=== PATIENT | male | born 1960 | race Caucasian/White ===

== ENCOUNTER 2018-11-17 14:32 | Outpatient (CLI) | payer OTHER, SELFPAY ==
[2018-11-17 15:10] LABS: Mean Corp. HGB Concentration 33.3 g/dL (32.0-36.0); Mean Corpuscular Volume 93.1 fL (80-95); Mean Platelet Volume 8.6 fL (8.0-11.0); Platelet Count 544 x1000/uL (130-400); RBC 4.51 m/cumm (4.50-6.00); RBC Distribution Width 11.5 % (11.8-14.1); White Blood Cell Count 10.82 k/cumm (4.4-10.8)
[2018-11-17 15:34] LABS: ALT 36 U/L (16-63); AST 18 U/L (15-37); Albumin 3.9 g/dL (3.4-5.0); Alkaline Phosphatase 129 U/L (46-116); Amylase 27 U/L (25-115); Anion Gap 12.2 mmol/L (3-11); BUN 9 mg/dL (7-18); Bilirubin, Total 0.7 mg/dL (0.2-1.0); CO2 25.8 mmol/L (21.0-32.0); Calcium 9.5 mg/dL (8.5-10.1); Chloride 99 mmol/L (98-107); Glucose 97 mg/dL (70-100); Lipase 159 U/L (73-393); Potassium 4.2 mmol/L (3.5-5.1); Sodium 137 mmol/L (136-145); Total Protein 7.4 g/dL (6.4-8.2)
== END 2018-11-17 14:52 ==
PROVIDERS: PCP Emergency Medicine; Visit Provider Emergency Medicine
DX: R10.9 Unspecified abdominal pain (principal)
CPT/HCPCS: 36415; 80053; 83690; 85027; 82150

== ENCOUNTER 2018-12-14 00:58 | Outpatient (CLI) | payer OTHER, SELFPAY ==
--- NOTE | 2018-12-14 07:48 | DI.US_ITS ---
EXAM: US ABDOMEN CLINICAL HISTORY: abd painr10.13,r10.9. TECHNIQUE: Ultrasound performed using standard protocol. COMPARISON: ABDOMEN ULTRASOUND (P) from 12/24/2016 FINDINGS: Today's ultrasound examination is compared with previous study of 12/24/2016. There are numerous new areas heterogeneous but increased echogenicity in the liver with masslike appearance, findings are w orrisome for metastatic disease. There is a new large heterogeneous cystic mass right upper quadrant origin uncertain could be pancreatic, hepatic, or duodenal. No cholelithiasis. Gallbladder is dist ended. Common hepatic duct is dilated 14 millimeters. Aorta grossly unremarkable as visualized. Ki dneys grossly unremarkable. Pancreas not visualized. Spleen grossly unremarkable. IMPRESSION: Predominantly cystic heterogeneous right upper quadrant mass, origin uncertain, suspicious for a eddie gnancy with markedly abnormal appearance of hepatic parenchyma, possible metastatic disease. Correla tion with abdominal and pelvic CT recommended.
[2018-12-14 09:12] LABS: Abs Immature Grans 0.02 k/cumm (0.0-0.09); Absolute Basophil Count 0.03 k/cumm (0.0-0.2); Absolute Eosinophil Count 0.16 k/cumm (0.0-0.7); Absolute Monocyte Count 0.54 k/cumm (0.11-0.7); Absolute Neutrophil Count 5.04 k/cumm (1.2-6.7); Basophils % 0.4; Eosinophils % 2.4; HCT 42.6 % (40.0-50.0); HGB 14.3 g/dL (13.5-17.5); Immature Grans % 0.3; Lymphocytes % 13.5; Mean Corp. HGB Concentration 33.6 g/dL (32.0-36.0); Mean Corpuscular Volume 92.4 fL (80-95); Mean Platelet Volume 8.7 fL (8.0-11.0); Monocytes % 8.1; Neutrophils % 75.3; Platelet Count 438 x1000/uL (130-400); RBC 4.61 m/cumm (4.50-6.00); RBC Distribution Width 13.2 % (11.8-14.1); White Blood Cell Count 6.69 k/cumm (4.4-10.8)
[2018-12-14 10:16] LABS: AST 246 U/L (15-37); Albumin 3.8 g/dL (3.4-5.0); Alkaline Phosphatase 925 U/L (46-116); Amylase 22 U/L (25-115); Anion Gap 10.3 mmol/L (3-11); BUN 7 mg/dL (7-18); Bilirubin, Total 5.3 mg/dL (0.2-1.0); CO2 26.7 mmol/L (21.0-32.0); CREATININE 1.06 mg/dL (0.70-1.30); Calcium 9.6 mg/dL (8.5-10.1); Chloride 101 mmol/L (98-107); Glucose 119 mg/dL (70-100); Lipase 82 U/L (73-393); Potassium 4.6 mmol/L (3.5-5.1); Sodium 138 mmol/L (136-145); Total Protein 7.3 g/dL (6.4-8.2)
[2018-12-14 10:25] LABS: ALT 559 U/L (16-63)
== END 2018-12-14 01:18 ==
PROVIDERS: PCP Emergency Medicine; Visit Provider Emergency Medicine
DX: R10.13 Epigastric pain (principal); R10.11 Right upper quadrant pain; R19.01 Right upper quadrant abdominal swelling, mass and lump; R16.0 Hepatomegaly, not elsewhere classified; K76.89 Other specified diseases of liver
CPT/HCPCS: 36415; 80053; 83690; 76700; 82150; 85025

== ENCOUNTER 2018-12-15 12:51 | Outpatient (CLI) | payer OTHER, SELFPAY ==
--- NOTE | 2018-12-15 12:00 | DI.CT_ITS ---
EXAM: CT ABDOMEN PELVIS W CLINICAL HISTORY: ABD PAIN, R63.4, ABNORMAL WEIGHT LOSS, K75.9, INFLAMMATORY LIVER DISEASE TECHNIQUE: CT examination of the abdomen and pelvis was performed utilizing biphasic hepatic imaging following intravenous infusion of 100 cc of Omnipaque 350. COMPARISON: 12/14/18 ABDOMINAL ULTRASOUND FINDINGS: Images obtained through the lung bases show a couple of 1-2 millimeter in diameter noncalcified nodul es, right. No pleural effusion seen. There are numerous low and intermediate attenuation lesions in the liver. Some of these have attenua tion consistent with cysts, but the majority of the lesions have appearance highly suspicious for met astatic disease. There is marked gallbladder distension and there is dilatation of the common bile d uct at 17 millimeters. There is a low-attenuation mass in the lesser sac measuring up to 10 x 8 cm i n diameter, which appears to be associated with the pancreatic head and body and which on ultrasound showed complex internal echo characteristics. Complex echo characteristics also seen in pancreatic h ead, which is enlarged, irregular and has poorly defined contour with relation to surrounding fat. P ancreatic tail grossly unremarkable but with a dilated pancreatic duct. Spleen is unremarkable in appearance. Adrenals and kidneys appear normal. No urinary tract calcific ation or obstruction. No significant abdominal wall hernia. Appendix is normal. No focal bowel pat hology identified. Urinary bladder unremarkable. The fat surrounding the superior mesenteric artery is effaced. No gross arterial invasion seen. Per ipancreatic lymph nodes are noted, which are not grossly enlarged. Largest peripancreatic node is ap proximately 13 millimeters in diameter. IMPRESSION: Findings as described above are highly suggestive of a pancreatic head neoplasm with numerous hepatic metastatic lesions. There is biliary dilatation consistent with biliary obstruction at the level of the pancreatic head.
== END 2018-12-15 13:11 ==
PROVIDERS: PCP Emergency Medicine; Visit Provider Emergency Medicine
DX: R63.4 Abnormal weight loss (principal); R10.9 Unspecified abdominal pain; K76.89 Other specified diseases of liver; R91.8 Other nonspecific abnormal finding of lung field; K82.8 Other specified diseases of gallbladder; K86.89 Other specified diseases of pancreas
CPT/HCPCS: 74177

== ENCOUNTER 2019-02-09 07:39 | Outpatient (RCR) | payer OTHER, SELFPAY ==
[2019-02-09 08:22] LABS: Abs Immature Grans 0.48 k/cumm (0.0-0.09); HGB 10.5 g/dL (13.5-17.5); Mean Corp. HGB Concentration 32.8 g/dL (32.0-36.0); Mean Corpuscular Hemoglobin 28.5 pg (27.0-33.0); Mean Corpuscular Volume 86.7 fL (80-95); Mean Platelet Volume 8.4 fL (8.0-11.0); Platelet Count 314 x1000/uL (130-400); RBC 3.69 m/cumm (4.50-6.00); RBC Distribution Width 14.4 % (11.8-14.1); White Blood Cell Count 14.79 k/cumm (4.4-10.8)
[2019-02-09 08:25] LABS: ALT 18 U/L (16-63); AST 26 U/L (15-37); Albumin 2.1 g/dL (3.4-5.0); Alkaline Phosphatase 260 U/L (46-116); Anion Gap 10.1 mmol/L (3-11); BUN 8 mg/dL (7-18); Bilirubin, Total 0.8 mg/dL (0.2-1.0); CO2 26.9 mmol/L (21.0-32.0); CREATININE 1.05 mg/dL (0.70-1.30); Calcium 8.6 mg/dL (8.5-10.1); Chloride 96 mmol/L (98-107); Glucose 108 mg/dL (74-106); Potassium 3.6 mmol/L (3.5-5.1); Sodium 133 mmol/L (136-145); Total Protein 6.7 g/dL (6.4-8.2)
[2019-02-09 08:41] LABS: Absolute Lymphocyte Count 0.89 k/cumm (1.2-3.4); Absolute Monocyte Count 1.04 k/cumm (0.11-0.7); Absolute Neutrophil Count 12.42 k/cumm (1.2-6.7)
[2019-02-09 08:42] LABS: Diff Comment Manual Differential; Polychromasia Present
[2019-02-09] MEDS: Normal Saline Flush 10 ML SYR 30 ML IVP (09:00)
[2019-02-12 13:31] LABS: CA 19-9 18251 U/mL (<35)
== END 2019-03-02 23:59 | disposition home or self-care (01) ==
LOC: INF 07:39
PROVIDERS: PCP Emergency Medicine; Visit Provider Internal Medicine Hematology & Oncology
DX: C25.9 Malignant neoplasm of pancreas, unspecified (principal); C78.7 Secondary malignant neoplasm of liver and intrahepatic bile duct; Z45.2 Encounter for adjustment and management of vascular access device
CPT/HCPCS: 36591; 80053; 85025; 86301

== ENCOUNTER 2019-02-15 09:18 | Emergency (ER) | payer OTHER, SELFPAY ==
[2019-02-15] VITALS (34 sets, daily range): BP systolic 90–120; BP diastolic 65–75; PULSE 78–116; RESP 11–25; TEMP 36.6; O2SAT 97
--- NOTE | 2019-02-15 09:20 | ED.GENADUL_ITS ---
Discharge Plan Disposition Patient Disposition: HOME Condition: Stable Discharge Details Chief Complaint: Nausea/Vomit/Diar Clinical Impression: Diarrhea, Dehydration, Arrhythmia, Decreased urine output Primary Care Provider: Larry Ayers ED Provider: Tanya Hayes Home Meds and New Rx's Prescriptions: Continued ondansetron HCl [Zofran] 8 mg tablet 8 mg PO Q8H MDD 4 tabs Qty: 30 RF: 0 hydromorphone [Dilaudid] 4 mg tablet 4 - 8 mg PO Q3H PRN PRNRF: 0 potassium chloride 10 mEq tablet extended release 20 meq PO BID RF: 0 polyethylene glycol 3350 [Miralax] 17 gram/dose powder 17 gm PO DAILY RF: 0 sildenafil [Viagra] 100 MG tablet 100 mg PO PRN Qty: 5 RF: 12 clonazepam [Klonopin] 0.5 mg tablet 0.5 mg PO BID Qty: 180 RF: 1 Symbicort 80-4.5 mcg/actuation HFA aerosol inhaler 2 puff Inhalation BID Qty: 3 RF: 4 alprazolam [Xanax] 0.5 mg tablet 0.5 mg PO DAILY PRN (Reason: panic attack(s)) Qty: 30 RF: 1 albuterol sulfate [ProAir HFA] 90 mcg/actuation HFA aerosol inhaler 1 - 2 puff Inhalation Q6H PRN Qty: 3 RF: 12 prochlorperazine maleate 10 mg Tablet 10 mg PO Q6H PRNRF: 0 Discharge Instructions Instructions: Atrial Fibrillation (ED), Holter Monitoring (ED), Dehydration (ED), Urinary Retention in Men (ED), Acute Diarrhea (ED) Additional Instructions: You have chosen to leave the emergency department prior to undergoing full evaluation and treatment. The risks of doing so are or permanent disability. You may return to the emergency department at any time if you change your mind. Please return immediately to the emergency department if you develop any new or worsening symptoms, if your condition does not improve as expected, or if you become otherwise concerned. It is extremely important that you call soon as possible to make an appointment to be seen in follow-up for this visit by your primary care doctor and your oncologist. Referrals: Larry Ayers, [Primary Care Provider] - Collins Hernandes MD [MD CONSULTING PHYSICIAN] - Discharge Data Discharge Date/Time-TO BE ENTERED AT DEPARTURE: 02/15/19 16:05 Medical Decision Making Alexis Dougherty is a 58-year-old man with a history of asthma, hypertension, advanced pancreatic cancer diagnosed 12/19 now on chemotherapy presenting to the emergency department with 5 days of progressive diarrhea. On exam patient is thin, acutely nontoxic appearing mildly tachycardic, benign abdominal exam, no peripheral edema. Concern for chemotherapy effect, dehydration, metabolic/electrolyte disturbance, possible C. difficile. Doubt sepsis at this time. Exam/history is not consistent with acute surgical intra-abdominal emergency, GI bleed. Plan for EKG, screening labs, IV fluid hydration, urinalysis, telemetry. Will monitor and reassess. EKG shows likely atrial fibrillation versus ectopy, artifact present. Patient with no known history of atrial fibrillation. Plan for repeat. EKG shows sinus rhythm, no ectopy. we will continue to monitor. Patient has received 2 L of IV fluid, has not yet urinated. Plan for third liter of IV fluid. Patient reports that he feels much improved and essentially at baseline. Patient continues to be in sinus rhythm on the monitor. [id number] score 1. I discussed patient presentation and ED course with Dr. Boyd of cardiology, who recommended Holter monitor, outpatient follow-up, no anticoagulation or further treatment at this time. Labs reviewed, lactate 1.0, white count 7.25, troponin negative. Patient continues to feel very well on reassessment, reports that he would like to go home. Has not urinated after liters of IV fluid. Patient feels like he could go to the bathroom, but when he attempts he is unable to produce urine. Patient reports that he urinated a normal amount prior to coming into the emergency department this morning. Patient reports that he has had some urinary hesitancy in the past, but does not have prostate problems or bladder obstruction problems that he knows of. Plan for bladder scan. Bladder scan shows 684 cc of fluid in bladder. I had a lengthy discussion with patient rating my concern for bladder obstruction of unknown cause, unclear amount of urine output. Recommended patient have [place] catheter placement. Also recommended CT scan, as bladder obstruction does appear to be new issue. Patient states that he would like to go home at this time, and return to the emergency department if he is unable to produce urine at home or if his condition worsens. I had a lengthy discussion with the patient regarding the risks of leaving the emergency department prior to full evaluation and treatment, including or permanent disability. Patient verbalized understanding of the risks and continued to refuse further evaluation/treatment. I had a lengthy discussion with Patient regarding return to emergency department precautions, home care, that he may return to the emergency department anytime if he change his mind, and importance of outpatient follow- up. Pt verbalizes understanding of the plan and is amenable. Patient discharged to home with clear plan for outpatient follow-up. All questions were answered. I discussed the patient's mentation, results, and emergency department course with Dr. Hernandes of oncology, who will see patient as an outpatient in follow-up. Medical Records Medical records reviewed: Yes I reviewed the patient's medical records. Lab Data Lab results reviewed: Yes I reviewed the patient's lab results. Labs: 02/15/19 14:02 Stool Clostridioides difficile Screen - Pending Laboratory Tests Range/Units 02/15/19 02/15/19 02/15/19 09:55 09:55 09:55 WBC (4.4-10.8) k/cumm 7.25 RBC (4.50-6.00) m/cumm 3.58 L Hgb (13.5-17.5) g/dL 10.2 L Hct (40.0-50.0) % 30.9 L MCV (80-95) fL 86.3 MCH (27.0-33.0) pg 28.5 MCHC (32.0-36.0) g/dL 33.0 RDW (11.8-14.1) % 14.5 H Plt Count (130-400) x1000/uL 159 D MPV (8.0-11.0) fL 9.0 Immature Gran % 0.6 Neutrophils % 89.5 Lymphocytes % 8.3 Monocytes % 1.5 Eosinophils % 0.0 Basophils % 0.1 Absolute Neutrophils (1.2-6.7) k/cumm 6.49 Absolute Lymphocytes (1.2-3.4) k/cumm 0.60 L Absolute Monocytes (0.11-0.7) k/cumm 0.11 Absolute Eosinophils (0.0-0.7) k/cumm 0.00 Absolute Basophils (0.0-0.2) k/cumm 0.01 Sodium (136-145) mmol/L 132 L Potassium (3.5-5.1) mmol/L 3.4 L Chloride (98-107) mmol/L 97 L Carbon Dioxide (21.0-32.0) mmol/L 25.6 Anion Gap (3-11) mmol/L 9.4 BUN (7-18) mg/dL 13 Creatinine (0.70-1.30) mg/dL 1.00 Estimated GFR/1.73 m2 (mL/min/1.73m2) >= 60.00 Glucose (74-106) mg/dL 160 H Lactate (0.6-1.4) mmol/L 1.0 Calcium (8.5-10.1) mg/dL 8.3 L Total Bilirubin (0.2-1.0) mg/dL 0.8 AST (15-37) U/L 25 ALT (16-63) U/L 29 Alkaline Phosphatase (46-116) U/L 261 H Troponin I (<0.06) ng/Ml Total Protein (6.4-8.2) g/dL 6.7 Albumin (3.4-5.0) g/dL 2.3 L TSH (0.36-3.74) uIU/mL 2.24 Range/Units 02/15/19 02/15/19 09:55 13:15 WBC (4.4-10.8) k/cumm RBC (4.50-6.00) m/cumm Hgb (13.5-17.5) g/dL Hct (40.0-50.0) % MCV (80-95) fL MCH (27.0-33.0) pg MCHC (32.0-36.0) g/dL RDW (11.8-14.1) % Plt Count (130-400) x1000/uL MPV (8.0-11.0) fL Immature Gran % Neutrophils % Lymphocytes % Monocytes % Eosinophils % Basophils % Absolute Neutrophils (1.2-6.7) k/cumm Absolute Lymphocytes (1.2-3.4) k/cumm Absolute Monocytes (0.11-0.7) k/cumm Absolute Eosinophils (0.0-0.7) k/cumm Absolute Basophils (0.0-0.2) k/cumm Sodium (136-145) mmol/L Potassium (3.5-5.1) mmol/L Chloride (98-107) mmol/L Carbon Dioxide (21.0-32.0) mmol/L Anion Gap (3-11) mmol/L BUN (7-18) mg/dL Creatinine (0.70-1.30) mg/dL Estimated GFR/1.73 m2 (mL/min/1.73m2) Glucose (74-106) mg/dL Lactate (0.6-1.4) mmol/L Calcium (8.5-10.1) mg/dL Total Bilirubin (0.2-1.0) mg/dL AST (15-37) U/L ALT (16-63) U/L Alkaline Phosphatase (46-116) U/L Troponin I (<0.06) ng/Ml < 0.05 < 0.05 Total Protein (6.4-8.2) g/dL Albumin (3.4-5.0) g/dL TSH (0.36-3.74) uIU/mL ECG Data Attestation: I personally reviewed and interpreted this ECG (s) as follows: Interpretation: EKG 9:46 shows apparent atrial fibrillation rate 71, normal axis, no STEMI, nonspecific T wave changes not present on prior EKG 10:12 shows sinus rhythm at 92, normal axis, continued nonspecific ST changes EKG 10: 56 shows sinus rhythm at 87, normal axis, continued nonspecific ST changes HPI General Mode of arrival: ambulatory . Date/Time Provider Initiated Documentation: 02/15/19 09:20 . Limitations to Documentation: no limitations . Information obtained by: patient, family, RN notes reviewed and old records reviewed . HPI Narrative: Alexis Dent is a 58-year-old man with a history of asthma, hypertension, advanced pancreatic cancer presenting to the emergency department with diarrhea. Patient is accompanied by his who also provides a history. They report the patient was diagnosed with pancreatic cancer 12/19. He is currently undergoing chemotherapy, with last infusion 02/11. He has not had surgery or radiation therapy. Patient reports that he has had mild to moderate abdominal pain, constipation, and lack of appetite essentially since his diagnosis. Patient reports that since 02/11 his constipation resolved and he began having diarrhea which is not typical for him. He reports that since that time diarrhea has been increasing. He reports that it is a light brown color and intermittently very watery. Patient reports that his abdominal pain has improved since onset of diarrhea, and he denies having any current pain at this time. Patient reports that he has had continued poor appetite. He has also had intermittent episodes of sweating since his diagnosis which have continued, but he has not had a fever that he knows of. He denies shortness of breath, cough, vomiting, numbness, focal weakness. Related Data Home Medications Medication Instructions Recorded Confirmed sildenafil [Viagra] 100 mg PO PRN #5 tab 03/25/14 02/12/19 clonazepam 0.5 mg tablet 0.5 mg PO BID #180 tab 07/21/18 02/15/19 budesonide-formoterol HFA 80 2 puff INHALATION BID #3 inhaler 12/01/18 02/15/19 mcg-4.5 mcg/actuation aerosol inhaler ondansetron HCl 8 mg tablet 8 mg PO Q8H #30 tab MDD 4 tabs 12/16/18 02/15/19 alprazolam 0.5 mg tablet 0.5 mg PO DAILY PRN #30 tab-cap 12/25/18 02/15/19 hydromorphone 4 mg tablet 4 - 8 mg PO Q3H PRN PRN tab 01/12/19 02/15/19 polyethylene glycol 3350 17 17 gm PO DAILY 01/12/19 02/15/19 gram/dose oral powder potassium chloride 10 mEq 20 meq PO BID tab 01/12/19 02/15/19 tablet,extended release albuterol sulfate 90 mcg/actuation 1 - 2 puff INHALATION Q6H PRN #3 02/09/19 02/15/19 aerosol inhaler canister prochlorperazine maleate 10 mg PO Q6H PRN 02/15/19 02/15/19 Previous Rx's Medication Instructions Recorded clonazepam 0.5 mg tablet 0.5 mg PO BID #180 tab 07/21/18 budesonide-formoterol HFA 80 2 puff INHALATION BID #3 inhaler 12/01/18 mcg-4.5 mcg/actuation aerosol inhaler ondansetron HCl 8 mg tablet 8 mg PO Q8H #30 tab MDD 4 tabs 12/16/18 alprazolam 0.5 mg tablet 0.5 mg PO DAILY PRN #30 tab-cap 12/25/18 albuterol sulfate 90 mcg/actuation 1 - 2 puff INHALATION Q6H PRN #3 02/09/19 aerosol inhaler canister Allergies Allergy/AdvReac Type Severity Reaction Status Date / Time azithromycin Allergy Severe LIP Verified 02/15/19 09:26 SWELLING Animals Allergy Unknown Uncoded 02/15/19 09:26 Review of Systems Narrative: Constitutional: denies fevers reports intermittent sweats and generalized weakness Eyes: denies eye pain ENT: denies ear pain, dental pain, sore throat Cardiovascular: denies chest pain Respiratory: denies SOB, cough GI: denies abdominal pain, vomiting, reports diarrhea : denies flank pain MSK: denies back pain, neck pain, arthralgias, myalgias Skin: denies rash Neuro: denies headaches, numbness, focal weakness PFSH Medical History Abdominal pain (Acute) Asthma Pancreatic cancer (Acute) Surgical History Colonoscopy - IV Sedation (08/30/16) Family History Mother Essential hypertension Heart disease Father Essential hypertension Brother Crohns disease Neoplasm TESTICULAR Grandmother No problems noted. Son No problems noted. Daughter No problems noted. Social History Smoking/Tobacco Use Status: Never Drug use: Never Exam Narrative Exam Narrative: Constitutional: Somewhat thin, acutely [id number], pleasant, conversing normally HENT: head atraumatic/normocephalic/normal inspection, mucous membranes dry Eyes: conjunctiva normal, sclera normal, pupils 3mm b/l Neck: no stridor, normal ROM, trachea midline Chest: normal inspection Resp: normal work of breathing, LCTAB Cardio: Tachycardic rate, normal rhythm, no murmur appreciated GI: abdomen soft, non-tender, non-distended Skin: warm, dry, normal color, no rash Neuro: alert, not altered, grossly non-focal, normal tone Ext: no edema Psych: normal mood, normal affect, normal behavior
[2019-02-15] MEDS: Normal Saline 1,000 ML 1000 ML IV (09:52)
[2019-02-15] MEDS: Normal Saline Flush 10 ML SYR IVP ×2 (10:02→15:29)
[2019-02-15] MEDS: Normal Saline-STERILE FIELD 0.9% 10 ML SYR (10:02)
[2019-02-15 10:05] LABS: Abs Immature Grans 0.04 k/cumm (0.0-0.09); Absolute Basophil Count 0.01 k/cumm (0.0-0.2); Absolute Monocyte Count 0.11 k/cumm (0.11-0.7); Absolute Neutrophil Count 6.49 k/cumm (1.2-6.7); Basophils % 0.1; HCT 30.9 % (40.0-50.0); HGB 10.2 g/dL (13.5-17.5); Immature Grans % 0.6; Lymphocytes % 8.3; Mean Corpuscular Hemoglobin 28.5 pg (27.0-33.0); Mean Corpuscular Volume 86.3 fL (80-95); Monocytes % 1.5; Neutrophils % 89.5; Platelet Count 159 x1000/uL (130-400); RBC 3.58 m/cumm (4.50-6.00); RBC Distribution Width 14.5 % (11.8-14.1); White Blood Cell Count 7.25 k/cumm (4.4-10.8)
[2019-02-15 10:27] LABS: ALT 29 U/L (16-63); AST 25 U/L (15-37); Albumin 2.3 g/dL (3.4-5.0); Alkaline Phosphatase 261 U/L (46-116); Anion Gap 9.4 mmol/L (3-11); BUN 13 mg/dL (7-18); Bilirubin, Total 0.8 mg/dL (0.2-1.0); CO2 25.6 mmol/L (21.0-32.0); Calcium 8.3 mg/dL (8.5-10.1); Chloride 97 mmol/L (98-107); Glucose 160 mg/dL (74-106); Potassium 3.4 mmol/L (3.5-5.1); Sodium 132 mmol/L (136-145); TSH (W/Ref FT4) 2.24 uIU/mL (0.36-3.74); Total Protein 6.7 g/dL (6.4-8.2)
[2019-02-15 10:48] LABS: Troponin I < 0.05 ng/Ml (<0.06)
[2019-02-15] MEDS: Lactated Ringers 1,000 ML 1000 ML IV ×2 (10:57→12:45)
[2019-02-15 13:51] LABS: Troponin I < 0.05 ng/Ml (<0.06)
[2019-02-15] MEDS: Heparin 500 UNITS/5 ML SYRINGE (15:29)
== END 2019-02-15 16:05 | disposition home or self-care (01) ==
PROVIDERS: Emergency Provider Student in an Organized Health Care Education/Training Program; PCP Emergency Medicine
DX: R19.7 Diarrhea, unspecified (principal); E86.0 Dehydration; I49.9 Cardiac arrhythmia, unspecified; R33.9 Retention of urine, unspecified; Z53.29 Procedure and treatment not carried out because of patient's decision for other reasons; Z95.828 Presence of other vascular implants and grafts; C25.9 Malignant neoplasm of pancreas, unspecified; Z79.899 Other long term (current) drug therapy; I10 Essential (primary) hypertension
CPT/HCPCS: 36591; 80053; 93005; 96360; 96361; 99284; 81003; 83605; 84443; 84484; 85025; 87324; 93010; 93225

== ENCOUNTER 2019-02-18 12:33 | Outpatient (CLI) | payer OTHER, SELFPAY ==
--- NOTE | 2019-02-18 14:13 | W.HOLTRPT ---
Date of service: 02/18/19 Time of Service: 14:13 Holter Monitor Report Holter Monitor Note: There is a 48-hour Holter monitor ordered for the indication of atrial fibrillation. ?There was one episode of supraventricular tachycardia which lasted 8 beats. ?There were rare (less than 1%) premature atrial contractions and one 6 beat run of PACs. ?There was one episode of ventricular tachycardia which lasted 4 beats. There were rare (less than 1%) single ventricular ectopic beats. ?There were no episodes of atrial fibrillation, no episodes of high degree heart block and no pauses greater than 3 seconds. ?There were no patient recorded events.
== END 2019-02-18 12:53 ==
PROVIDERS: PCP Emergency Medicine; Visit Provider Student in an Organized Health Care Education/Training Program
DX: I48.91 Unspecified atrial fibrillation (principal); I47.1 Supraventricular tachycardia; I49.1 Atrial premature depolarization; I47.2 Ventricular tachycardia
CPT/HCPCS: 93226

== ENCOUNTER 2019-02-23 03:27 | Outpatient (CLI) | payer OTHER, SELFPAY ==
--- NOTE | 2019-02-23 10:07 | DI.CT_ITS ---
EXAM: CT CHEST/ABD/PEL W CLINICAL HISTORY: PANCREATIC CANCER METASTASIZED TO LIVER C25.9, C78.7, COMPARE TO CT DONE ON TECHNIQUE: Imaging Protocol: Axial computed tomography images with coronal and sagittal reformatted images were created and reviewed CONTRAST MATERIAL: Intravenous: Omnipaque 350 Contrast volume:100 mL contrast route:IV - Oral: Yes COMPARISON: CT ABDOMEN PELVIS W from 12/15/2018 CT CHEST W LEB from 12/24/2018 FINDINGS: CHEST: Tracheobronchial tree: Patent where visualized. Mediastinum and Zonia: No dominant adenopathy or fluid collection. Pulmonary parenchyma: Calcified granuloma in the right upper lobe is unchanged. Nodular density asso ciated with the right major fissure is unchanged and is most suggestive of an intrapulmonary lymph no de. There is again seen linear scarring in the lung bases bilaterally. The opacity in the left ling rm is less prominent on the current examination. No new pulmonary nodules or infiltrates are seen. Pleura: No effusion or pneumothorax. Lymph nodes: Within normal limits. Aorta: Thoracic portion non-dilated. Heart: Nondilated. No pericardial effusion. Coronary artery calcifications. Lines: The indwelling central venous catheter is in good position. Bones: Within normal limits. ABDOMEN: Liver: Normal density. There are multiple hepatic masses present. There has been interval developmen t of a mass in the caudal aspect of the right lobe of the liver measuring 4.8 x 4 centimeters. There is a stable 3.7 centimeter mass in the left lobe of the liver. There is a stable 1.7 centimeter mas s in the anterior segment of the right lobe of the liver. Gallbladder and biliary tract: Oral contrast is seen within the gallbladder likely result of the julia ent's biliary stent. There is no biliary ductal dilatation. Pneumobilia is present. Pancreas: There is again seen enlargement heterogeneity of the pancreatic head consistent with the pa tient's known pancreatic carcinoma. There is atrophy of the body and tail of the pancreas. The krao pancreatic cyst/pseudocyst is no longer visualized. The cysto gastrostomy stent is in place. Spleen: Splenomegaly. The splenic vein is patent. Kidneys: Normal size, contour and axis. No radiodense stones or obstructive uropathy. No masses seen. Adrenal glands: No masses seen. Aorta: Atherosclerosis. No aneurysmal dilatation. Incidental note is made of a retroaortic left elise al vein. Lymph nodes: Within normal limits. PELVIS: Bladder: Symmetric distention, no gross wall thickening. Bowel: No obstruction or bowel wall thickening. The appendix is normal in size without evidence of ad jacent mesenteric fat stranding or adjacent fluid collection. Peritoneal cavity: Small amount of pelvic ascites. Bones: Within normal limits. Reproductive organs: Within normal limits. IMPRESSION: 1. Pancreatic head mass consistent with the patient's known pancreatic carcinoma. 2. Multiple hepatic masses consistent with metastatic disease. New 4.8 x 4.0 centimeter dense lesion in the caudal aspect of the right lobe of the liver. This may represent a new metastatic lesion. A bscess cannot be excluded. 3. Resolution of the peripancreatic cyst or pseudocyst. 4. Small amount of pelvic ascites. 5. Opacity in the left lingula is less prominent compared to the prior examination. This may represe nt atelectasis or scarring. Follow-up is recommended to document stability. DATA REPOSITORY: All CT scans at this facility are submitted to the National Radiology Data Registry (NRDR) Dose Index Registry (DIR) with the [employer] ([employer]). RADIATION OPTIMIZATION: All CT scans at this facility use at least one of these dose optimization te chniques: automated exposure control; mA and/or kV adjustment per patient size (includes targeted exa ms where dose is matched to clinical indication); or iterative reconstruction.
[2019-02-23] MEDS: Breeza Beverage 473 ML BTL PO (10:16)
[2019-02-23] MEDS: Omnipaque 350 MG/ML 50 ML BTL IJ (10:16)
[2019-02-23] MEDS: Omnipaque 350 MG/ML 100 ML BTL IJ (10:17)
== END 2019-02-23 03:47 ==
PROVIDERS: PCP Emergency Medicine; Visit Provider Internal Medicine Hematology & Oncology
DX: C25.9 Malignant neoplasm of pancreas, unspecified (principal); C78.7 Secondary malignant neoplasm of liver and intrahepatic bile duct; R91.8 Other nonspecific abnormal finding of lung field; R16.1 Splenomegaly, not elsewhere classified; R18.8 Other ascites
CPT/HCPCS: 74177; 71260; J3490; Q9967

== ENCOUNTER 2019-02-23 03:47 | Outpatient (RCR) | payer OTHER, SELFPAY ==
[2019-02-05] MEDS: Normal Saline Flush 10 ML SYR IVP (07:38)
[2019-02-05 08:05] LABS: HCT 29.9 % (40.0-50.0); HGB 9.8 g/dL (13.5-17.5); Mean Corp. HGB Concentration 32.8 g/dL (32.0-36.0); Mean Corpuscular Hemoglobin 28.3 pg (27.0-33.0); Mean Corpuscular Volume 86.4 fL (80-95); Mean Platelet Volume 8.6 fL (8.0-11.0); Platelet Count 358 x1000/uL (130-400); RBC 3.46 m/cumm (4.50-6.00); RBC Distribution Width 14.2 % (11.8-14.1); White Blood Cell Count 9.58 k/cumm (4.4-10.8)
[2019-02-05 08:29] LABS: Absolute Lymphocyte Count 0.86 k/cumm (1.2-3.4); Atypical Lymphocytes % 2
[2019-02-05 08:30] LABS: Absolute Monocyte Count 1.53 k/cumm (0.11-0.7); Diff Comment Manual Differential; RBC Morphology Normal
[2019-02-05 08:39] LABS: ALT 17 U/L (16-63); AST 24 U/L (15-37); Albumin 2.2 g/dL (3.4-5.0); Anion Gap 8.2 mmol/L (3-11); BUN 10 mg/dL (7-18); Bilirubin, Total 0.9 mg/dL (0.2-1.0); CO2 27.8 mmol/L (21.0-32.0); CREATININE 1.12 mg/dL (0.70-1.30); Calcium 8.4 mg/dL (8.5-10.1); Chloride 90 mmol/L (98-107); Glucose 108 mg/dL (74-106); Potassium 3.3 mmol/L (3.5-5.1); Sodium 126 mmol/L (136-145); Total Protein 6.7 g/dL (6.4-8.2)
[2019-02-05 08:51] LABS: Alkaline Phosphatase 218 U/L (46-116)
[2019-02-05 10:53] LABS: Iron 7 ug/dL (65-175); Total Iron Binding Capacity 105 ug/dL (250-450); Transferrin Sat 7 % (20-55)
[2019-02-05 11:34] LABS: Ferritin > 1000 ng/mL (26-388)
[2019-02-08 14:17] LABS: CA 19-9 8584 U/mL (<35)
[2019-02-19] MEDS: Normal Saline Flush 10 ML SYR IVP (12:15)
[2019-02-19] MEDS: Heparin 500 UNITS/5 ML SYRINGE IV (12:15)
[2019-02-19 12:35] LABS: Abs Immature Grans 0.02 k/cumm (0.0-0.09); Absolute Basophil Count 0.01 k/cumm (0.0-0.2); Absolute Eosinophil Count 0.02 k/cumm (0.0-0.7); Absolute Lymphocyte Count 0.72 k/cumm (1.2-3.4); Absolute Monocyte Count 0.57 k/cumm (0.11-0.7); Absolute Neutrophil Count 6.62 k/cumm (1.2-6.7); Basophils % 0.1; Eosinophils % 0.3; HCT 27.6 % (40.0-50.0); HGB 8.9 g/dL (13.5-17.5); Immature Grans % 0.3; Mean Corp. HGB Concentration 32.2 g/dL (32.0-36.0); Mean Corpuscular Hemoglobin 27.9 pg (27.0-33.0); Mean Corpuscular Volume 86.5 fL (80-95); Mean Platelet Volume 8.3 fL (8.0-11.0); Monocytes % 7.2; Neutrophils % 83.1; Platelet Count 243 x1000/uL (130-400); RBC 3.19 m/cumm (4.50-6.00); RBC Distribution Width 14.9 % (11.8-14.1); White Blood Cell Count 7.96 k/cumm (4.4-10.8)
[2019-02-19 12:46] LABS: ALT 20 U/L (16-63); AST 21 U/L (15-37); Albumin 2.2 g/dL (3.4-5.0); Alkaline Phosphatase 246 U/L (46-116); Anion Gap 7.4 mmol/L (3-11); BUN 7 mg/dL (7-18); Bilirubin, Total 0.9 mg/dL (0.2-1.0); CO2 27.6 mmol/L (21.0-32.0); CREATININE 0.82 mg/dL (0.70-1.30); Calcium 8.3 mg/dL (8.5-10.1); Chloride 94 mmol/L (98-107); Glucose 101 mg/dL (74-106); Potassium 3.6 mmol/L (3.5-5.1); Sodium 129 mmol/L (136-145); Total Protein 6.5 g/dL (6.4-8.2)
[2019-02-19 13:36] LABS: Diff Comment Diff Reviewed; Hypochromasia 2+; Polychromasia Present
[2019-02-19 13:37] LABS: Poikilocytes 2+
[2019-02-22 14:36] LABS: CA 19-9 6001 U/mL (<35)
[2019-02-23] MEDS: Heparin 500 UNITS/5 ML SYRINGE IV (08:41)
[2019-02-23] MEDS: Normal Saline Flush 10 ML SYR IVP (08:41)
== END 2019-03-02 23:59 | disposition home or self-care (01) ==
LOC: INF 03:47
PROVIDERS: PCP Emergency Medicine; Visit Provider Internal Medicine Hematology & Oncology
DX: C25.9 Malignant neoplasm of pancreas, unspecified (principal); C78.7 Secondary malignant neoplasm of liver and intrahepatic bile duct; Z45.2 Encounter for adjustment and management of vascular access device
CPT/HCPCS: 36591; 80053; 86304; 96523; 82728; 83540; 83550; 85025; 86300; 86301

== ENCOUNTER 2019-02-26 14:50 | Outpatient (REF) | payer OTHER, SELFPAY ==
[2019-02-26 13:07] LABS: Abs Immature Grans 0.19 k/cumm (0.0-0.09); HCT 26.5 % (40.0-50.0); HGB 8.6 g/dL (13.5-17.5); Mean Corp. HGB Concentration 32.5 g/dL (32.0-36.0); Mean Corpuscular Hemoglobin 27.2 pg (27.0-33.0); Mean Corpuscular Volume 83.9 fL (80-95); Mean Platelet Volume 8.3 fL (8.0-11.0); RBC 3.16 m/cumm (4.50-6.00); RBC Distribution Width 16.6 % (11.8-14.1); White Blood Cell Count 12.19 k/cumm (4.4-10.8)
[2019-02-26 13:19] LABS: ALT 15 U/L (16-63); AST 20 U/L (15-37); Alkaline Phosphatase 227 U/L (46-116); Anion Gap 8.2 mmol/L (3-11); BUN 6 mg/dL (7-18); Bilirubin, Total 0.7 mg/dL (0.2-1.0); CO2 28.8 mmol/L (21.0-32.0); Calcium 8.6 mg/dL (8.5-10.1); Chloride 92 mmol/L (98-107); Glucose 109 mg/dL (74-106); Potassium 3.4 mmol/L (3.5-5.1); Sodium 129 mmol/L (136-145)
[2019-02-26 13:20] LABS: Absolute Eosinophil Count 0.12 k/cumm (0.0-0.7); Absolute Monocyte Count 0.98 k/cumm (0.11-0.7); Absolute Neutrophil Count 9.87 k/cumm (1.2-6.7); Diff Comment Manual Differential
[2019-02-26 13:21] LABS: Anisocytosis 1+; Hypochromasia 2+; Platelet Count 518 x1000/uL (130-400); Polychromasia Present
== END 2019-02-26 15:10 ==
LOC: LBN 14:50
PROVIDERS: PCP Emergency Medicine; Visit Provider Internal Medicine Hematology & Oncology
DX: C25.9 Malignant neoplasm of pancreas, unspecified (principal); C78.7 Secondary malignant neoplasm of liver and intrahepatic bile duct
CPT/HCPCS: 80053; 85025

== ENCOUNTER 2019-03-22 01:05 | Outpatient (RCR) | payer OTHER, SELFPAY ==
[2019-03-05 14:43] LABS: Abs Immature Grans 0.44 k/cumm (0.0-0.09); HCT 26.8 % (40.0-50.0); HGB 8.5 g/dL (13.5-17.5); Mean Corp. HGB Concentration 31.7 g/dL (32.0-36.0); Mean Corpuscular Hemoglobin 26.6 pg (27.0-33.0); Mean Corpuscular Volume 83.8 fL (80-95); Mean Platelet Volume 9.1 fL (8.0-11.0); Platelet Count 268 x1000/uL (130-400); RBC Distribution Width 17.2 % (11.8-14.1); White Blood Cell Count 12.92 k/cumm (4.4-10.8)
[2019-03-05 14:44] LABS: Absolute Monocyte Count 0.65 k/cumm (0.11-0.7)
[2019-03-05] MEDS: Normal Saline Flush 10 ML SYR IVP (14:44)
[2019-03-05] MEDS: Heparin 500 UNITS/5 ML SYRINGE IV (14:44)
[2019-03-05 14:57] LABS: ALT 19 U/L (16-63); AST 29 U/L (15-37); Albumin 1.7 g/dL (3.4-5.0); Alkaline Phosphatase 269 U/L (46-116); Anion Gap 8.8 mmol/L (3-11); BUN 8 mg/dL (7-18); Bilirubin, Total 0.7 mg/dL (0.2-1.0); CO2 27.2 mmol/L (21.0-32.0); CREATININE 0.86 mg/dL (0.70-1.30); Calcium 8.3 mg/dL (8.5-10.1); Chloride 103 mmol/L (98-107); Glucose 94 mg/dL (74-106); Potassium 3.6 mmol/L (3.5-5.1); Sodium 139 mmol/L (136-145); Total Protein 6.1 g/dL (6.4-8.2)
[2019-03-05 14:59] LABS: Absolute Lymphocyte Count 1.03 k/cumm (1.2-3.4); Absolute Neutrophil Count 10.85 k/cumm (1.2-6.7); Anisocytosis 2+; Diff Comment Manual Differential; Hypochromasia 2+; Macrocytosis 1+; Microcytosis 1+; Poikilocytes 1+; Polychromasia Present
[2019-03-08 15:35] LABS: CA 19-9 12390 U/mL (<35)
[2019-03-22] MEDS: Normal Saline Flush 10 ML SYR IVP (09:22)
[2019-03-22] MEDS: Heparin 500 UNITS/5 ML SYRINGE IV (09:22)
[2019-03-22 09:35] LABS: Abs Immature Grans 0.02 k/cumm (0.0-0.09); Absolute Basophil Count 0.03 k/cumm (0.0-0.2); Absolute Eosinophil Count 0.12 k/cumm (0.0-0.7); Absolute Lymphocyte Count 0.56 k/cumm (1.2-3.4); Absolute Monocyte Count 0.58 k/cumm (0.11-0.7); Absolute Neutrophil Count 5.56 k/cumm (1.2-6.7); Basophils % 0.4; Eosinophils % 1.7; HCT 26.5 % (40.0-50.0); HGB 8.5 g/dL (13.5-17.5); Immature Grans % 0.3 %; Lymphocytes % 8.2; Mean Corp. HGB Concentration 32.1 g/dL (32.0-36.0); Mean Corpuscular Volume 84.1 fL (80-95); Mean Platelet Volume 8.5 fL (8.0-11.0); Monocytes % 8.4; Platelet Count 377 x1000/uL (130-400); RBC 3.15 m/cumm (4.50-6.00); White Blood Cell Count 6.87 k/cumm (4.4-10.8)
[2019-03-22 09:50] LABS: ALT 9 U/L (16-63); AST 22 U/L (15-37); Albumin 2.1 g/dL (3.4-5.0); Alkaline Phosphatase 214 U/L (46-116); Anion Gap 7.3 mmol/L (3-11); BUN 7 mg/dL (7-18); Bilirubin, Total 0.6 mg/dL (0.2-1.0); CO2 26.7 mmol/L (21.0-32.0); CREATININE 0.76 mg/dL (0.70-1.30); Calcium 8.5 mg/dL (8.5-10.1); Chloride 100 mmol/L (98-107); Glucose 108 mg/dL (74-106); Potassium 3.6 mmol/L (3.5-5.1); Sodium 134 mmol/L (136-145); Total Protein 6.9 g/dL (6.4-8.2)
== END 2019-04-02 23:59 | disposition home or self-care (01) ==
LOC: INF 01:05
PROVIDERS: PCP Emergency Medicine; Visit Provider Internal Medicine Hematology & Oncology
DX: C25.9 Malignant neoplasm of pancreas, unspecified (principal); Z45.2 Encounter for adjustment and management of vascular access device; C78.7 Secondary malignant neoplasm of liver and intrahepatic bile duct
CPT/HCPCS: 36591; 80053; 86850; 86900; 86901; 85025; 86301

== ENCOUNTER 2019-04-23 02:52 | Outpatient (RCR) | payer OTHER, SELFPAY ==
[2019-04-07] MEDS: Normal Saline Flush 10 ML SYR IVP (08:44)
[2019-04-07 08:50] LABS: Abs Immature Grans 0.02 k/cumm (0.0-0.09); Absolute Basophil Count 0.04 k/cumm (0.0-0.2); Absolute Eosinophil Count 0.19 k/cumm (0.0-0.7); Absolute Lymphocyte Count 0.82 k/cumm (1.2-3.4); Absolute Neutrophil Count 5.42 k/cumm (1.2-6.7); Basophils % 0.6; Eosinophils % 2.7; HGB 9.5 g/dL (13.5-17.5); Immature Grans % 0.3 %; Lymphocytes % 11.6; Mean Corp. HGB Concentration 31.7 g/dL (32.0-36.0); Mean Corpuscular Hemoglobin 26.6 pg (27.0-33.0); Mean Platelet Volume 8.3 fL (8.0-11.0); Monocytes % 8.5; Neutrophils % 76.3; Platelet Count 289 x1000/uL (130-400); RBC 3.57 m/cumm (4.50-6.00); RBC Distribution Width 18.6 % (11.8-14.1); White Blood Cell Count 7.09 k/cumm (4.4-10.8)
[2019-04-07 09:03] LABS: ALT 19 U/L (16-63); AST 30 U/L (15-37); Albumin 2.3 g/dL (3.4-5.0); Alkaline Phosphatase 530 U/L (46-116); Anion Gap 7.1 mmol/L (3-11); BUN 8 mg/dL (7-18); Bilirubin, Total 0.7 mg/dL (0.2-1.0); CO2 25.9 mmol/L (21.0-32.0); CREATININE 0.81 mg/dL (0.70-1.30); Calcium 8.2 mg/dL (8.5-10.1); Chloride 101 mmol/L (98-107); Glucose 110 mg/dL (74-106); Potassium 3.8 mmol/L (3.5-5.1); Sodium 134 mmol/L (136-145); Total Protein 7.4 g/dL (6.4-8.2)
[2019-04-09 12:09] LABS: CA 19-9 22266 U/mL (<35)
[2019-04-23] MEDS: Normal Saline Flush 10 ML SYR IVP (08:30)
[2019-04-23 09:06] LABS: Abs Immature Grans 0.05 k/cumm (0.0-0.09); Absolute Basophil Count 0.02 k/cumm (0.0-0.2); Absolute Eosinophil Count 0.05 k/cumm (0.0-0.7); Basophils % 0.2; Eosinophils % 0.4; HCT 24.8 % (40.0-50.0); Immature Grans % 0.4 %; Lymphocytes % 5.4; Mean Corp. HGB Concentration 32.3 g/dL (32.0-36.0); Mean Corpuscular Hemoglobin 26.4 pg (27.0-33.0); Mean Corpuscular Volume 81.8 fL (80-95); Mean Platelet Volume 8.7 fL (8.0-11.0); Neutrophils % 86.6; Platelet Count 349 x1000/uL (130-400); RBC 3.03 m/cumm (4.50-6.00); RBC Distribution Width 17.4 % (11.8-14.1); White Blood Cell Count 11.38 k/cumm (4.4-10.8)
[2019-04-23 09:18] LABS: ALT 13 U/L (16-63); AST 24 U/L (15-37); Alkaline Phosphatase 499 U/L (46-116); Anion Gap 8.8 mmol/L (3-11); BUN 12 mg/dL (7-18); Bilirubin, Total 0.8 mg/dL (0.2-1.0); CO2 26.2 mmol/L (21.0-32.0); CREATININE 0.73 mg/dL (0.70-1.30); Chloride 97 mmol/L (98-107); Glucose 119 mg/dL (74-106); Sodium 132 mmol/L (136-145); Total Protein 6.8 g/dL (6.4-8.2)
[2019-04-23 09:44] LABS: Absolute Lymphocyte Count 0.61 k/cumm (1.2-3.4); Absolute Neutrophil Count 9.86 k/cumm (1.2-6.7)
[2019-04-23 09:46] LABS: Anisocytosis 1+; Diff Comment Agrees w/ Instrument
== END 2019-05-01 23:59 | disposition home or self-care (01) ==
LOC: INF 02:52
PROVIDERS: PCP Emergency Medicine; Visit Provider Internal Medicine Hematology & Oncology
DX: C25.9 Malignant neoplasm of pancreas, unspecified (principal); C78.7 Secondary malignant neoplasm of liver and intrahepatic bile duct; Z45.2 Encounter for adjustment and management of vascular access device
CPT/HCPCS: 36591; 80053; 85025; 86301

== ENCOUNTER 2019-04-23 06:48 | Outpatient (CLI) | payer OTHER, SELFPAY ==
--- NOTE | 2019-04-23 08:00 | DI.US_ITS ---
EXAM: US LOWER EXTREMITY VENOUS RT CLINICAL HISTORY: leg pain in setting of pancreatic cancer, M79.606 TECHNIQUE: Ultrasound performed using standard protocol. COMPARISON: No exams were available for comparison FINDINGS: Thrombus is visible beginning in the proximal superficial femoral vein. The common femoral vein appe ars free of thrombus. The thrombus extends through the superficial femoral vein through the poplitea l vein into the calf. One of the posterior tibial veins appears free of thrombus. The other shows v isible thrombus. The profunda femoral vein also shows thrombus. IMPRESSION: Deep venous thrombosis from the proximal superficial femoral vein through the calf. DATA REPOSITORY:
== END 2019-04-23 07:08 ==
PROVIDERS: PCP Emergency Medicine; Visit Provider Family Medicine
DX: M79.606 Pain in leg, unspecified (principal); C25.9 Malignant neoplasm of pancreas, unspecified; I82.411 Acute embolism and thrombosis of right femoral vein
CPT/HCPCS: 93971